=== PATIENT | female | born 1960 | race Caucasian/White ===

== ENCOUNTER 2022-06-23 22:23 | Emergency (ER) | payer OTHER | END 2022-06-23 23:43 | disposition left against medical advice (07) | LOC: ER 22:36 | DX: Z53.21 Procedure and treatment not carried out due to patient leaving prior to being seen by health care provider (principal) ==

== ENCOUNTER 2023-01-02 09:09 | Emergency (ER) | payer OTHER ==
[~2023-01-02] VITALS: Ht 165.1 cm; Wt 79.4 kg
[~2023-01-02 09:09] MED LIST: CEPH500C2 MT
[2023-01-02 09:19] VITALS: O2SAT 98
[2023-01-02] MEDS ORDERED: BACITRACIN ZINC OINT UDPKT TOP ONE (10:30)
[2023-01-02 11:21] VITALS: BP 112/74; PULSE 74; RESP 16; TEMP 98.6
== END 2023-01-02 11:22 | disposition home or self-care (01) ==
LOC: ER 09:09
DX: Z48.00 Encounter for change or removal of nonsurgical wound dressing (principal); J45.909 Unspecified asthma, uncomplicated; Z91.040 Latex allergy status
CPT/HCPCS: 99282; Z7610 ×2

== ENCOUNTER 2024-06-24 20:45 | Emergency (ER) | payer MEDICAID, OTHER ==
[~2024-06-24] VITALS: Ht 165.1 cm; Wt 77.0 kg
[2024-06-24 20:56] VITALS: O2SAT 100
[2024-06-24 23:35] VITALS: BP 124/70; PULSE 78; RESP 16; TEMP 36.7; O2SAT 100
== END 2024-06-24 23:36 | disposition home or self-care (01) ==
LOC: ER 20:45
DX: Z48.89 Encounter for other specified surgical aftercare (principal); J45.909 Unspecified asthma, uncomplicated; Z79.899 Other long term (current) drug therapy; Z98.890 Other specified postprocedural states
CPT/HCPCS: 99281; Z7610